=== PATIENT | male | born 1935 | race Caucasian/White ===

== ENCOUNTER 2019-04-16 06:06 | Day surgery (SDC) | payer MEDICARE, BC ==
[2019-04-15 10:27] LABS: BASOPHILS % (AUTO) 0.5 % (0-1); EOSINOPHILS # (AUTO) 0.1 X10'3 (0-0.9); EOSINOPHILS % (AUTO) 1.3 % (0-6); HEMATOCRIT 39.6 % (42.0-52.0); HEMOGLOBIN 13.9 g/dl (14.0-17.9); LYMPHOCYTES # (AUTO) 1.2 X10'3 (1.1-4.8); LYMPHOCYTES % (AUTO) 28.1 % (21-51); MEAN CORPUSCULAR HEMOGLOBIN 30.6 PG (27.0-31.0); MEAN CORPUSCULAR VOLUME 87.5 FL (78-98); MEAN PLATELET VOLUME 7.7 FL (7.4-10.4); MONOCYTES # (AUTO) 0.4 X10'3 (0-0.9); MONOCYTES % (AUTO) 8.8 % (2-12); NEUTROPHILS # (AUTO) 2.6 X10'3 (1.8-7.7); NEUTROPHILS % (AUTO) 61.3 % (42-75); PLATELET COUNT 141 X10'3 (140-440); RED BLOOD COUNT 4.53 X10'6 (4.70-6.10); RED CELL DISTRIBUTION WIDTH 13.6 % (11.5-14.5); WHITE BLOOD COUNT 4.2 X10'3 (4.5-11.0)
[2019-04-15 10:39] LABS: ALBUMIN 3.7 G/DL (3.4-5.0); ANION GAP 7 (8-16); BLOOD UREA NITROGEN 20 MG/DL (7-18); BUN/CREATININE RATIO 22.2 (5.4-32.0); CALCIUM 9.3 MG/DL (8.5-10.1); CHLORIDE 108 MMOL/L (99-107); GLUCOSE 101 MG/DL (70-104); SODIUM 144 MMOL/L (135-145); eGFR 80 ML/MIN
[2019-04-15 10:41] LABS: PARTIAL THROMBOPLASTIN TIME 28 SECONDS (22-32)
[~2019-04-16] VITALS: Ht 177.8 cm; Wt 73.2 kg
[2019-04-16] VITALS (10 sets, daily range): BP systolic 110–131; BP diastolic 57–73
[~2019-04-16 06:06] MED LIST: COU1T PO; COU3T PO; LOP25T PO
[2019-04-16] MEDS ORDERED: cefazolin/dext.iso 2gm/50ml 50 ML IV ONE (06:25)
[2019-04-16] MEDS ORDERED: normal saline 1000ml 1,000 ML IV SCH (06:25)
[2019-04-16] MEDS ORDERED: METO50TA16 PO (06:39)
[2019-04-16] MEDS ORDERED: ceFAZolin 1000mg inj ONE (07:38)
[2019-04-16] MEDS ORDERED: LIDOcaine 1% W/epiNEPHrine 1:100,000 20ml vial ONE ×2 (07:38→08:36)
[2019-04-16] MEDS ORDERED: ceFAZolin 1GM/D5W- ADD-VANTAGE 50 ML IV ONE (07:38)
[2019-04-16] MEDS ORDERED: fentaNYL/PF 50MCG/1 ML 2ML syringe ONE (07:38)
[2019-04-16] MEDS ORDERED: midazolam 2 mg/2 ml injection ONE (07:38)
[2019-04-16] MEDS ORDERED: HYDROcodone/acetaminophen 10/325mg tab PO PRN (10:00)
[2019-04-16] MEDS ORDERED: HYDROcodone/acetaminophen 5mg/325mg tablet PO PRN (10:00)
[2019-04-16] MEDS ORDERED: normal saline 1,000 ML IV SCH (10:10)
[2019-04-16] MEDS ORDERED: vancomycin/NS 1 GM ADD-VANTAGE 250 ML IV ONE (11:00)
== END 2019-04-16 14:05 | disposition home or self-care (01) ==
LOC: SSTAY O 06:06
PROVIDERS: ATTEND Internal Medicine Cardiovascular Disease
DX: Z45.010 Encounter for checking and testing of cardiac pacemaker pulse generator [battery] (principal); I25.10 Atherosclerotic heart disease of native coronary artery without angina pectoris; E78.5 Hyperlipidemia, unspecified; I48.20 Chronic atrial fibrillation, unspecified; I48.21 Permanent atrial fibrillation; I49.5 Sick sinus syndrome; Z79.01 Long term (current) use of anticoagulants; Z79.899 Other long term (current) drug therapy; Z96.653 Presence of artificial knee joint, bilateral; Z98.890 Other specified postprocedural states
CPT/HCPCS: 33227; 36415; 80048; 85025; 85610; 85730; 93005; 99152; 99153; A4620; A6258; A6449; C1786; J0690; J2250; J3010; J3370; J7030

== ENCOUNTER 2022-01-25 22:39 | Emergency (ER) | payer MEDICARE, BC ==
[~2022-01-25] VITALS: Ht 170.2 cm; Wt 63.4 kg
[~2022-01-25 22:39] MED LIST changes: +BACL10TA2 PO; +FURO40TA4 PO; -LOP25T PO; +METO50TA16 PO; +POTA-207 PO; +TRAV2.5D6
[2022-01-25 23:36] LABS: BASOPHILS % (AUTO) 0.9 % (0-1); EOSINOPHILS # (AUTO) 0.1 X10'3 (0-0.9); EOSINOPHILS % (AUTO) 1.7 % (0-6); HEMATOCRIT 32.9 % (42.0-52.0); HEMOGLOBIN 11.3 g/dl (14.0-17.9); LYMPHOCYTES # (AUTO) 2.4 X10'3 (1.1-4.8); LYMPHOCYTES % (AUTO) 47.5 % (21-51); MEAN CORPUSCULAR HGB CONC 34.3 g/dL (33.0-36.5); MEAN CORPUSCULAR VOLUME 90.4 FL (78-98); MEAN PLATELET VOLUME 7.2 FL (7.4-10.4); MONOCYTES # (AUTO) 0.5 X10'3 (0-0.9); MONOCYTES % (AUTO) 9.9 % (2-12); PLATELET COUNT 116 X10'3 (140-440); RED BLOOD COUNT 3.64 X10'6 (4.70-6.10); RED CELL DISTRIBUTION WIDTH 14.6 % (11.5-14.5)
[2022-01-26] MEDS ORDERED: Thrombin (Bovine) 5,000 unit vial TP ONE
[2022-01-26 00:11] LABS: APTT 33 SECONDS (22-32)
[2022-01-26 00:25] LABS: TOTAL CELLS COUNTED 100
[2022-01-26 00:26] LABS: ELLIPTOCYTES 1+; PLATELET ESTIMATE DECREASED; SCHISTOCYTES FEW
[2022-01-26 02:15] VITALS: BP 123/75
== END 2022-01-26 02:25 | disposition home or self-care (01) ==
LOC: ER 22:40
DX: S01.512A Laceration without foreign body of oral cavity, initial encounter (principal); I11.0 Hypertensive heart disease with heart failure; I50.9 Heart failure, unspecified; G89.29 Other chronic pain; M54.50 Low back pain, unspecified; X58.XXXA Exposure to other specified factors, initial encounter; Y93.89 Activity, other specified; Y92.89 Other specified places as the place of occurrence of the external cause; Y99.8 Other external cause status
CPT/HCPCS: 36415; 85007; 85025; 85610; 85730; 99285

== ENCOUNTER 2022-01-28 21:55 | Emergency (ER) | payer MEDICARE, BC ==
[~2022-01-28] VITALS: Ht 170.2 cm; Wt 67.3 kg
[2022-01-29] MEDS ORDERED: tranexamic acid 100mg/ml inj. TP ONE (01:30)
[2022-01-29] MEDS ORDERED: LIDOcaine 1% W/epiNEPHrine 1:100,000 20ml vial SQ ONE (01:30)
[2022-01-29] MEDS ORDERED: LIDOcaine 40mg/ml topical solution MM ONE (03:20)
[2022-01-29] MEDS ORDERED: LIDOcaine 4% (40 mg/ml) topical solution 50ml MM ONE (03:25)
[2022-01-29 04:11] VITALS: BP 119/70
== END 2022-01-29 04:13 | disposition home or self-care (01) ==
LOC: ER 21:56
DX: S01.512A Laceration without foreign body of oral cavity, initial encounter (principal); I11.0 Hypertensive heart disease with heart failure; I50.9 Heart failure, unspecified; G89.29 Other chronic pain; Z95.0 Presence of cardiac pacemaker; Z79.01 Long term (current) use of anticoagulants; Z79.899 Other long term (current) drug therapy; I48.91 Unspecified atrial fibrillation; X58.XXXA Exposure to other specified factors, initial encounter; Y93.89 Activity, other specified; Y92.89 Other specified places as the place of occurrence of the external cause; Y99.8 Other external cause status
CPT/HCPCS: 99284; A6449

== ENCOUNTER 2022-03-14 08:26 | Day surgery (SDC) | payer MEDICARE, BC ==
[~2022-03-14] VITALS: Ht 167.6 cm; Wt 68.1 kg
[2022-03-14 08:42] VITALS: BP 135/82
[2022-03-14] MEDS ORDERED: CLOP75TA15 PO (09:06)
[2022-03-14] MEDS ORDERED: ROSU10TA2 PO (09:06)
[2022-03-14] MEDS ORDERED: MIDAZolam 1 MG/ML 5ML VIAL ONE (09:14)
[2022-03-14] MEDS ORDERED: fentaNYL/PF 50MCG/1 ML 2ML syringe ONE (09:14)
[2022-03-14 10:25] VITALS: BP 132/69
[2022-03-14 10:35] VITALS: BP 133/86
[2022-03-14 10:45] VITALS: BP 121/70
[2022-03-14 10:55] VITALS: BP 129/78
== END 2022-03-14 11:05 | disposition home or self-care (01) ==
LOC: GI LAB 08:26
PROVIDERS: ATTEND Internal Medicine Gastroenterology
DX: K62.5 Hemorrhage of anus and rectum (principal); K57.30 Diverticulosis of large intestine without perforation or abscess without bleeding; Z79.899 Other long term (current) drug therapy
CPT/HCPCS: 45378; G0500; J2250; J3010; J7030; Z7512; 99152; A4620

== ENCOUNTER 2022-12-03 12:44 | Inpatient (IN) | payer MEDICARE, BC ==
[~2022-12-03] VITALS: Ht 167.6 cm; Wt 65.9 kg
[~2022-12-03 12:44] MED LIST changes: -BACL10TA2 PO; +CLOP75TA15 PO; -FURO40TA4 PO; -POTA-207 PO; +ROSU10TA2 PO; -TRAV2.5D6
[2022-12-03 13:19] LABS: BASOPHILS % (AUTO) 0.7 % (0-1); EOSINOPHILS # (AUTO) 0.1 X10'3 (0-0.9); EOSINOPHILS % (AUTO) 0.9 % (0-6); HEMATOCRIT 34.5 % (42.0-52.0); HEMOGLOBIN 11.6 g/dl (14.0-17.9); LYMPHOCYTES # (AUTO) 0.9 X10'3 (1.1-4.8); LYMPHOCYTES % (AUTO) 12.9 % (21-51); MEAN CORPUSCULAR HEMOGLOBIN 29.3 PG (27.0-31.0); MEAN CORPUSCULAR HGB CONC 33.5 g/dL (33.0-36.5); MEAN CORPUSCULAR VOLUME 87.3 FL (78-98); MONOCYTES # (AUTO) 0.4 X10'3 (0-0.9); MONOCYTES % (AUTO) 6.2 % (2-12); NEUTROPHILS # (AUTO) 5.6 X10'3 (1.8-7.7); NEUTROPHILS % (AUTO) 79.3 % (42-75); PLATELET COUNT 153 X10'3 (140-440); RED BLOOD COUNT 3.95 X10'6 (4.70-6.10); RED CELL DISTRIBUTION WIDTH 14.5 % (11.5-14.5)
[2022-12-03 13:27] LABS: ALANINE AMINOTRANSFERASE 22 U/L (12-78); ALBUMIN 3.7 G/DL (3.4-5.0); ALKALINE PHOSPHATASE 83 IU/L (46-116); ANION GAP 7 (8-16); ASPARTATE AMINO TRANSFERASE 32 U/L (10-37); BILIRUBIN,TOTAL 1.3 MG/DL (0.1-1.0); BLOOD UREA NITROGEN 24 MG/DL (7-18); BUN/CREATININE RATIO 26.4 (10.0-20.0); CALCIUM 9.4 MG/DL (8.5-10.1); CHLORIDE 107 MMOL/L (99-107); CREATININE 0.91 MG/DL (0.60-1.10); GLUCOSE 121 MG/DL (70-104); POTASSIUM 4.3 MMOL/L (3.5-5.1); SODIUM 141 MMOL/L (135-145); TOTAL PROTEIN 7.3 G/DL (6.4-8.2); eGFR 79 ML/MIN
--- NOTE | 2022-12-03 15:30 | NUR ---
RN PERFORMED GAIT TEST WITH PT WITH WALKER. PT WALKED 10 STEPS AND BECAME UNSTEADY. RN NOTIFIED. HARRIS HERNANDEZ.
[2022-12-03] MEDS ORDERED: magnesium hydroxide 30ml (MOM) UD suspension PO PRN (16:45)
[2022-12-03] MEDS ORDERED: magnesium Cl slow-release 64mg tablet PO PRN (16:45)
[2022-12-03] MEDS ORDERED: potassium Cl 40MEQ/1/2NS 520ml 520 ML IV PRN (16:45)
[2022-12-03] MEDS ORDERED: magnesium 4gm in 100ml NS 100 ML IV PRN (16:45)
[2022-12-03] MEDS ORDERED: magnesium 2GM in 50ml NS 50 ML IV PRN (16:45)
[2022-12-03] MEDS ORDERED: potassium Cl 20 mEq SR tablet PO PRN ×2 (16:45)
[2022-12-03] MEDS ORDERED: ondansetron/PF 4mg/2ml inj IV PRN (16:45)
[2022-12-03] MEDS ORDERED: mag hydrox/Alum hydrox/simeth 30ml oral suspension PO PRN (16:45)
[2022-12-03] MEDS ORDERED: acetaminophen 325mg tablet PO PRN (16:45)
--- NOTE | 2022-12-03 17:27 | NUR ---
PT HAVING US AT THIS TIME.
[2022-12-03] MEDS ORDERED: WARF-65 PO (18:19)
[2022-12-03] MEDS: normal saline 1000ml 1,000 ML IV SCH (18:26)
[2022-12-03] MEDS ORDERED: metoprolol tartrate 50mg tablet PO ONE (18:30)
--- NOTE | 2022-12-03 18:44 | NUR ---
PAGED DR. WOLF REGARDING MRI. 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
--- NOTE | 2022-12-03 19:40 | NUR ---
Patient in room ORTHO 4020. I have received report from SUZIE Santos and had the opportunity to ask questions and assume patient care.
[2022-12-03 19:45] VITALS: BP 122/70
[2022-12-03] MEDS: K and/or MAG REPLACEMENT MC SCH (20:00)
[2022-12-03] MEDS ORDERED: WARF3TAB56 PO (20:31)
[2022-12-03] MEDS ORDERED: BRIM5DRO3 EACHEYE (20:32)
[2022-12-03] MEDS ORDERED: warfarin 1mg tablet PO ONE (21:00)
[2022-12-03] MEDS: docusate sod 100mg capsule PO SCH (21:16)
[2022-12-04] VITALS: BP 113/62
[2022-12-04] MEDS: normal saline 1000ml 1,000 ML IV SCH ×2 (02:45→05:27)
[2022-12-04 04:00] VITALS: BP 136/77
--- NOTE | 2022-12-04 06:24 | NUR ---
Problems reprioritized. Patient report given, questions answered & plan of care reviewed with SUZIE RON.
--- NOTE | 2022-12-04 06:28 | NUR ---
Patient in room ORTHO 4020. I have received report from Kacie RN /Char Spivey RN and had the opportunity to ask questions and assume patient care.
[2022-12-04 06:44] LABS: BASOPHILS % (AUTO) 0.4 % (0-1); EOSINOPHILS # (AUTO) 0.1 X10'3 (0-0.9); EOSINOPHILS % (AUTO) 2.4 % (0-6); HEMATOCRIT 34.6 % (42.0-52.0); HEMOGLOBIN 11.5 g/dl (14.0-17.9); LYMPHOCYTES # (AUTO) 1.8 X10'3 (1.1-4.8); LYMPHOCYTES % (AUTO) 41.6 % (21-51); MEAN CORPUSCULAR HEMOGLOBIN 29.1 PG (27.0-31.0); MEAN CORPUSCULAR HGB CONC 33.2 g/dL (33.0-36.5); MEAN CORPUSCULAR VOLUME 87.6 FL (78-98); MONOCYTES # (AUTO) 0.4 X10'3 (0-0.9); MONOCYTES % (AUTO) 9.4 % (2-12); NEUTROPHILS % (AUTO) 46.2 % (42-75); PLATELET COUNT 136 X10'3 (140-440); RED BLOOD COUNT 3.95 X10'6 (4.70-6.10); RED CELL DISTRIBUTION WIDTH 14.5 % (11.5-14.5); WHITE BLOOD COUNT 4.3 X10'3 (4.5-11.0)
[2022-12-04 06:55] LABS: ALBUMIN 3.3 G/DL (3.4-5.0); ANION GAP 7 (8-16); BLOOD UREA NITROGEN 22 MG/DL (7-18); BUN/CREATININE RATIO 23.2 (10.0-20.0); CALCIUM 8.7 MG/DL (8.5-10.1); CHLORIDE 108 MMOL/L (99-107); CREATININE 0.95 MG/DL (0.60-1.10); GLUCOSE 88 MG/DL (70-104); MAGNESIUM 1.7 MG/DL (1.5-2.4); SODIUM 142 MMOL/L (135-145); TOTAL CARBON DIOXIDE 27.1 MMOL/L (24-32); eGFR 75 ML/MIN
[2022-12-04 07:00] VITALS: BP 136/77
[2022-12-04] MEDS ORDERED: aspirin 81mg, enteric-coated 1 TAB TABLET.DR PO SCH (08:00)
[2022-12-04] MEDS: docusate sod 100mg capsule PO SCH (08:19)
[2022-12-04] MEDS: K and/or MAG REPLACEMENT MC SCH (08:19)
[2022-12-04] MEDS ORDERED: iohexol 350MG/ML 100ml bottle IV ONE (09:26)
[2022-12-04 10:00] VITALS: BP 121/61
--- NOTE | 2022-12-04 11:35 | NUR ---
MD notified MRI is not able to be completed, pacemaker not compatible.
--- NOTE | 2022-12-04 14:24 | NUR ---
Patient discharged to home. Family at bedside for all education. INR 3.5, to call monitoring nurse to get orders to hold or give. All education acknowledged, family had the opportunity to ask questions, no questions asked. Patient dressed himself. with all belongings and discharge paperwork. IV taken out. Patient out to lobby by .
== END 2022-12-04 14:26 | disposition home or self-care (01) | DRG 69 ==
LOC: ER 12:44 → ED HOLD 16:50 → ORTHO 4S 19:51
PROVIDERS: ADMIT Family Medicine; ATTEND Family Medicine
PROC: B3251ZZ Computerized Tomography (CT Scan) of Bilateral Common Carotid Arteries using Low Osmolar Contrast (ICD-10-PCS; principal; 2022-12-04)
PROC: B32G1ZZ Computerized Tomography (CT Scan) of Bilateral Vertebral Arteries using Low Osmolar Contrast (ICD-10-PCS; 2022-12-04)
PROC: B32R1ZZ Computerized Tomography (CT Scan) of Intracranial Arteries using Low Osmolar Contrast (ICD-10-PCS; 2022-12-04)
PROC: B3281ZZ Computerized Tomography (CT Scan) of Bilateral Internal Carotid Arteries using Low Osmolar Contrast (ICD-10-PCS; 2022-12-04)
DX: G45.9 Transient cerebral ischemic attack, unspecified (principal); I48.91 Unspecified atrial fibrillation; Z20.822 Contact with and (suspected) exposure to COVID-19; I11.0 Hypertensive heart disease with heart failure; H91.92 Unspecified hearing loss, left ear; N40.0 Benign prostatic hyperplasia without lower urinary tract symptoms; I50.9 Heart failure, unspecified; R29.6 Repeated falls; G89.29 Other chronic pain; M54.9 Dorsalgia, unspecified; Z79.899 Other long term (current) drug therapy; Z95.0 Presence of cardiac pacemaker; Z95.2 Presence of prosthetic heart valve
CPT/HCPCS: 36415; 70450; 70496; 70498; 71045; 72125; 80048; 80053; 83735; 83880; 84484; 85025; 85610; 87081; 87811; 92508; 92616; 93306; 93880; 97116; 97162; 97530; 99285; G0378; J3490; J7030; Q9967

== ENCOUNTER 2023-05-15 22:10 | Inpatient (IN) | payer MEDICARE, BC ==
[~2023-05-15] VITALS: Ht 172.7 cm; Wt 70.1 kg
[~2023-05-15 22:10] MED LIST changes: +BRIM5DRO3 EACHEYE; -COU1T PO; -COU3T PO; +WARF-65 PO; +WARF3TAB56 PO
[2023-05-15] MEDS ORDERED: CefTRIAXone/D5W-Rocephin 1gm 50 ML IV ONE (22:30)
[2023-05-15] MEDS ORDERED: normal saline 1000ML IV soln IVB ONE (22:30)
[2023-05-15 22:56] LABS: BASOPHILS # (AUTO) 0.1 X10'3 (0-0.2); BASOPHILS % (AUTO) 0.7 % (0-1); EOSINOPHILS % (AUTO) 0 % (0-6); HEMATOCRIT 30.7 % (42.0-52.0); HEMOGLOBIN 10.4 g/dl (14.0-17.9); LYMPHOCYTES # (AUTO) 0.3 X10'3 (1.1-4.8); LYMPHOCYTES % (AUTO) 3.5 % (21-51); MEAN CORPUSCULAR HEMOGLOBIN 29.5 PG (27.0-31.0); MEAN CORPUSCULAR VOLUME 86.9 FL (78-98); MEAN PLATELET VOLUME 6.9 FL (7.4-10.4); MONOCYTES # (AUTO) 0.5 X10'3 (0-0.9); MONOCYTES % (AUTO) 6.4 % (2-12); NEUTROPHILS # (AUTO) 6.7 X10'3 (1.8-7.7); NEUTROPHILS % (AUTO) 89.4 % (42-75); PLATELET COUNT 222 X10'3 (140-440); RED BLOOD COUNT 3.53 X10'6 (4.70-6.10); RED CELL DISTRIBUTION WIDTH 14.3 % (11.5-14.5); WHITE BLOOD COUNT 7.5 X10'3 (4.5-11.0)
[2023-05-15 23:00] LABS: INR 1.9 INR; PROTHROMBIN TIME 19.8 SECONDS (9.0-12.0)
[2023-05-15 23:04] LABS: ALANINE AMINOTRANSFERASE 14 U/L (12-78); ALBUMIN 2.7 G/DL (3.4-5.0); ALBUMIN/GLOBULIN RATIO 0.6 (1.1-1.5); ALKALINE PHOSPHATASE 154 IU/L (46-116); ANION GAP 7 (8-16); ASPARTATE AMINO TRANSFERASE 20 U/L (10-37); BILIRUBIN,TOTAL 1.8 MG/DL (0.1-1.0); BLOOD UREA NITROGEN 33 MG/DL (7-18); BUN/CREATININE RATIO 25.4 (10.0-20.0); CALCIUM 8.8 MG/DL (8.5-10.1); CHLORIDE 100 MMOL/L (99-107); GLUCOSE 123 MG/DL (70-104); POTASSIUM 3.5 MMOL/L (3.5-5.1); SODIUM 135 MMOL/L (135-145); TOTAL CARBON DIOXIDE 28.5 MMOL/L (24-32); TOTAL PROTEIN 7.4 G/DL (6.4-8.2); eCRCL 38 ML/MIN; eGFR 52 ML/MIN
--- NOTE | 2023-05-15 23:06 | NUR ---
- LATOYA HUANG: [phone] OR [phone]
[2023-05-15 23:12] LABS: BILIRUBIN,URINE NEGATIVE (Neg); CLARITY,URINE SLIGHTLY CLOUDY (Clear); GLUCOSE, URINE NEGATIVE (Neg); KETONES,URINE NEGATIVE (Neg); LEUKOCYTE ESTERASE ,URINE NEGATIVE (Neg); NITRITES, URINE NEGATIVE (Neg); OCCULT BLOOD,URINE SMALL (Neg); PH,URINE 5.5 (4.8-8.0); PROTEIN,URINE TRACE mg/dl (Neg)
[2023-05-15] MEDS ORDERED: DICL100G59 (23:12)
[2023-05-15] MEDS ORDERED: TRAV2.5D6 EACHEYE (23:12)
[2023-05-15] MEDS ORDERED: FURO40TA4 PO (23:12)
[2023-05-15] MEDS ORDERED: BRIM10DR3 EACHEYE (23:12)
[2023-05-15 23:13] LABS: UA COLLECTION TYPE STRAIGHT CATH
[2023-05-15 23:17] LABS: COLOR,URINE DARK YELLOW (Yellow)
[2023-05-15 23:19] LABS: BACTERIA,URINE FEW /HPF (Neg); SQUAMOUS EPITHELIAL CELL,UR FEW /LPF (FEW); WBC,URINE 0-4 /HPF (0-4)
[2023-05-15 23:20] LABS: AMORPHOUS URATES 1+
--- NOTE | 2023-05-15 23:32 | NUR ---
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 STATED PT RIGHT KNEE HAS BEEN SWOLLEN THE PAST FEW DAYS WELL AND WARM TO THE TOUCH. RASH NOTED TO RIGHT DISTAL RIGHT KNEE. RASH APPEARS NONPAINFUL BUT IS WARM TO THE TOUCH. DR SAENZ NOTIFIED ABOUT RASH.
[2023-05-16] VITALS (9 sets, daily range): BP systolic 82–119; BP diastolic 43–53; PULSE 60–90; RESP 13–21; TEMP 97.2–97.8; O2SAT 96–100
[2023-05-16] MEDS ORDERED: ondansetron/PF 4mg/2ml inj IV PRN
[2023-05-16] MEDS ORDERED: magnesium hydroxide 30ml (MOM) UD suspension PO PRN
[2023-05-16] MEDS ORDERED: acetaminophen 325mg tablet PO PRN
[2023-05-16] MEDS ORDERED: mag hydrox/Alum hydrox/simeth 30ml oral suspension PO PRN
[2023-05-16] MEDS ORDERED: morphine 2 MG/ML inj. syringe IV PRN ×2
[2023-05-16] MEDS: normal saline 1000ml 1,000 ML IV SCH ×3 (00:27→20:06)
--- NOTE | 2023-05-16 00:28 | NUR ---
DR SAENZ NOTIFIED OF LOW BP. MAINTENANCE FLUIDS STARTED.
[2023-05-16 00:53] LABS: PRO BRAIN NATRIURETIC PEPTIDE 3210 PG/ML (0-450)
--- NOTE | 2023-05-16 06:22 | NUR ---
Report given to Danielle
[2023-05-16 07:22] LABS: PROTHROMBIN TIME 20.7 SECONDS (9.0-12.0)
[2023-05-16] MEDS ORDERED: ceFAZolin/D5W- 1GM premix 50 ML IV SCH (08:00)
[2023-05-16] MEDS: metoprolol tartrate 50mg tablet PO SCH ×2 (08:00→20:20)
[2023-05-16] MEDS ORDERED: non-formulary drug (Warfarin Sodium 1 TABLET) PO SCH (08:00)
--- NOTE | 2023-05-16 08:05 | NUR ---
PAGER ID: [phone] MESSAGE: 3026A- Bhanu, E- positive BC drawn 05/15@2330 anarobic bottle gram neg rods. Also pt BP is 94/53 HR 68. - Muang [id number]
[2023-05-16] MEDS: clopidogrel 75mg tablet PO SCH (08:15)
[2023-05-16] MEDS: docusate sod 100mg capsule PO SCH ×2 (08:15→20:08)
[2023-05-16] MEDS ORDERED: vancomycin/NS 1 GM ADD-VANTAGE 250 ML IV SCH (08:35)
--- NOTE | 2023-05-16 08:53 | NUR ---
PAGER ID: [phone] MESSAGE: [id number]- Huseyin Drummond- 2nd positive BC Right arm drawn 05/15 anarobic positive @8.15 hours gram neg rods. 3rd bottle aerobic right forearm 05/15 psotive @9.17hrs gram neg rods.- Danielle [id number]
[2023-05-16] MEDS ORDERED: VANCOMYCIN 750MG IV in NS 250 ML IV SCH (09:00)
[2023-05-16 09:03] LABS: BASOPHILS # (AUTO) 0.1 X10'3 (0-0.2); BASOPHILS % (AUTO) 1.9 % (0-1); EOSINOPHILS % (AUTO) 0 % (0-6); HEMATOCRIT 29.7 % (42.0-52.0); HEMOGLOBIN 9.8 g/dl (14.0-17.9); LYMPHOCYTES # (AUTO) 0.4 X10'3 (1.1-4.8); LYMPHOCYTES % (AUTO) 5.3 % (21-51); MEAN PLATELET VOLUME 6.9 FL (7.4-10.4); MONOCYTES # (AUTO) 0.5 X10'3 (0-0.9); MONOCYTES % (AUTO) 6.9 % (2-12); NEUTROPHILS # (AUTO) 6.9 X10'3 (1.8-7.7); NEUTROPHILS % (AUTO) 85.9 % (42-75); PLATELET COUNT 186 X10'3 (140-440); RED BLOOD COUNT 3.37 X10'6 (4.70-6.10); RED CELL DISTRIBUTION WIDTH 14.3 % (11.5-14.5)
[2023-05-16 09:06] LABS: ALANINE AMINOTRANSFERASE 10 U/L (12-78); ALBUMIN 2.2 G/DL (3.4-5.0); ALBUMIN/GLOBULIN RATIO 0.5 (1.1-1.5); ALKALINE PHOSPHATASE 127 IU/L (46-116); ANION GAP 6 (8-16); ASPARTATE AMINO TRANSFERASE 18 U/L (10-37); BILIRUBIN,TOTAL 1.1 MG/DL (0.1-1.0); BLOOD UREA NITROGEN 31 MG/DL (7-18); BUN/CREATININE RATIO 28.7 (10.0-20.0); CALCIUM 8.2 MG/DL (8.5-10.1); CHLORIDE 103 MMOL/L (99-107); CHOL/HDL RATIO 3.3 (0.00-4.99); CHOLESTEROL 62 MG/DL (0-200); CREATININE 1.08 MG/DL (0.60-1.10); GLUCOSE 133 MG/DL (70-104); HDL CHOLESTEROL 19 MG/DL (35-60); LDL CHOLESTEROL 37 MG/DL (50-100); POTASSIUM 3.4 MMOL/L (3.5-5.1); SODIUM 137 MMOL/L (135-145); TOTAL CARBON DIOXIDE 28.2 MMOL/L (24-32); TOTAL PROTEIN 6.3 G/DL (6.4-8.2); TRIGLYCERIDES 58 MG/DL (20-135); eCRCL 46 ML/MIN; eGFR 65 ML/MIN
[2023-05-16 09:42] LABS: HEMOGLOBIN A1C 5.7 % (4.5-6.2)
[2023-05-16] MEDS ORDERED: magnesium Cl slow-release 64mg tablet PO PRN (09:55)
[2023-05-16] MEDS ORDERED: potassium Cl 20 mEq SR tablet PO PRN (09:55)
[2023-05-16] MEDS ORDERED: magnesium 2GM in 50ml NS 50 ML IV PRN (09:55)
[2023-05-16] MEDS ORDERED: magnesium 4gm in 100ml NS 100 ML IV PRN (09:55)
[2023-05-16] MEDS ORDERED: potassium Cl 40MEQ/1/2NS 520ml 520 ML IV PRN (09:55)
[2023-05-16] MEDS: brimonidine 0.2% 5 ML ophthalmic drops EACHEYE SCH ×2 (10:02→20:24)
[2023-05-16] MEDS: ROSUVASTATIN CALCIUM 5 MG TABLET PO SCH (10:03)
[2023-05-16] MEDS: CefTRIAXone/D5W-Rocephin 1gm 50 ML IV SCH (10:03)
--- NOTE | 2023-05-16 10:17 | NUR ---
Dr. Murphy aware patient BP low this am and unable to do orthostatic vitals. No new orders.
[2023-05-16] MEDS: potassium Cl 20 mEq SR tablet PO PRN ×2 (13:10→20:08)
--- NOTE | 2023-05-16 18:18 | NUR ---
Problems reprioritized. Patient report given, questions answered & plan of care reviewed with SUZIE Stanford.
--- NOTE | 2023-05-16 18:20 | NUR ---
Patient in room PCU 3026. I have received report from Danielle LARSEN and had the opportunity to ask questions and assume patient care.
--- NOTE | 2023-05-16 18:24 | NUR ---
Problems reprioritized. Patient report given, questions answered & plan of care reviewed with SUZIE Stanford.
[2023-05-16] MEDS: acetaminophen 325mg tablet PO PRN (18:38)
[2023-05-16] MEDS: latanoprost 0.005% 2.5ml ophthalmic drops EACHEYE SCH (20:15)
[2023-05-16] MEDS: K and/or MAG REPLACEMENT MC SCH (20:25)
[2023-05-16] MEDS ORDERED: warfarin 1mg tablet PO ONE (21:00)
[2023-05-17] VITALS (10 sets, daily range): BP systolic 90–126; BP diastolic 44–64; PULSE 62–80; RESP 16–21; TEMP 97–98.2; O2SAT 93–100
[2023-05-17] MEDS: acetaminophen 325mg tablet PO PRN (04:32)
[2023-05-17] MEDS: normal saline 1000ml 1,000 ML IV SCH ×2 (04:33→17:15)
--- NOTE | 2023-05-17 06:50 | NUR ---
Patient in room PCU 3026. I have received report from SUZIE Stanford and had the opportunity to ask questions and assume patient care.
--- NOTE | 2023-05-17 06:57 | NUR ---
Problems reprioritized. Patient report given, questions answered & plan of care reviewed with Porsha RN.
[2023-05-17 07:27] LABS: BASOPHILS % (AUTO) 0.3 % (0-1); EOSINOPHILS % (AUTO) 0.4 % (0-6); HEMATOCRIT 27.9 % (42.0-52.0); HEMOGLOBIN 9.3 g/dl (14.0-17.9); LYMPHOCYTES # (AUTO) 0.9 X10'3 (1.1-4.8); LYMPHOCYTES % (AUTO) 16.1 % (21-51); MEAN CORPUSCULAR HEMOGLOBIN 29.2 PG (27.0-31.0); MEAN CORPUSCULAR HGB CONC 33.4 g/dL (33.0-36.5); MEAN CORPUSCULAR VOLUME 87.5 FL (78-98); MEAN PLATELET VOLUME 7.1 FL (7.4-10.4); MONOCYTES # (AUTO) 0.5 X10'3 (0-0.9); MONOCYTES % (AUTO) 8.5 % (2-12); NEUTROPHILS % (AUTO) 74.7 % (42-75); PLATELET COUNT 185 X10'3 (140-440); RED CELL DISTRIBUTION WIDTH 14.4 % (11.5-14.5); WHITE BLOOD COUNT 5.3 X10'3 (4.5-11.0)
[2023-05-17 07:38] LABS: INR 1.8 INR; PROTHROMBIN TIME 18.5 SECONDS (9.0-12.0)
[2023-05-17 07:46] LABS: ALBUMIN 2.1 G/DL (3.4-5.0); ANION GAP 6 (8-16); BLOOD UREA NITROGEN 30 MG/DL (7-18); BUN/CREATININE RATIO 32.3 (10.0-20.0); CALCIUM 8.2 MG/DL (8.5-10.1); CHLORIDE 105 MMOL/L (99-107); CREATININE 0.93 MG/DL (0.60-1.10); GLUCOSE 91 MG/DL (70-104); POTASSIUM 4.1 MMOL/L (3.5-5.1); SODIUM 136 MMOL/L (135-145); eCRCL 53 ML/MIN; eGFR 77 ML/MIN
[2023-05-17] MEDS: K and/or MAG REPLACEMENT MC SCH ×2 (08:00→19:31)
[2023-05-17] MEDS: brimonidine 0.2% 5 ML ophthalmic drops EACHEYE SCH ×2 (08:00→19:28)
[2023-05-17] MEDS: metoprolol tartrate 50mg tablet PO SCH ×3 (08:00→19:29)
[2023-05-17] MEDS ORDERED: vancomycin/NS 1 GM ADD-VANTAGE 250 ML IV SCH (09:00)
[2023-05-17] MEDS: docusate sod 100mg capsule PO SCH ×2 (09:29→19:29)
[2023-05-17] MEDS: CefTRIAXone/D5W-Rocephin 1gm 50 ML IV SCH (09:30)
[2023-05-17] MEDS: clopidogrel 75mg tablet PO SCH (09:30)
[2023-05-17] MEDS: ROSUVASTATIN CALCIUM 5 MG TABLET PO SCH (09:31)
[2023-05-17] MEDS ORDERED: CefTRIAXone/D5W-Rocephin 1gm 50 ML IV ONE (10:55)
[2023-05-17] MEDS ORDERED: HYDROcodone/acetaminophen 5mg/325mg tablet PO PRN (12:35)
[2023-05-17] MEDS ORDERED: HYDROcodone/acetaminophen 10/325mg tab PO PRN (12:35)
[2023-05-17 15:29] LABS: APPEARANCE,SYNOVIAL FLUID BLOODY; COLOR,SYNOVIAL FLUID RED
[2023-05-17 15:30] LABS: SYN WBC 863 /CU MM (0-200)
--- NOTE | 2023-05-17 18:30 | NUR ---
Problems reprioritized. Patient report given, questions answered & plan of care reviewed with SUZIE Stanford.
--- NOTE | 2023-05-17 18:45 | NUR ---
Patient in room PCU 3026. I have received report from Porsha LARSEN and had the opportunity to ask questions and assume patient care.
--- NOTE | 2023-05-17 18:50 | NUR ---
Problems reprioritized. Patient report given, questions answered & plan of care reviewed with SUZIE Stanford.
[2023-05-17] MEDS ORDERED: warfarin 1mg tablet PO ONE (21:00)
[2023-05-17] MEDS: latanoprost 0.005% 2.5ml ophthalmic drops EACHEYE SCH (22:05)
[2023-05-18] VITALS (7 sets, daily range): BP systolic 106–114; BP diastolic 53–64; PULSE 53–68; RESP 16–24; TEMP 97.2–98.1; O2SAT 95–100
[2023-05-18] MEDS: normal saline 1000ml 1,000 ML IV SCH ×3 (02:15→22:00)
[2023-05-18 05:56] LABS: INR 1.7 INR; PROTHROMBIN TIME 18.1 SECONDS (9.0-12.0)
[2023-05-18 05:58] LABS: BASOPHILS % (AUTO) 0.3 % (0-1); EOSINOPHILS % (AUTO) 0.5 % (0-6); HEMATOCRIT 28.7 % (42.0-52.0); HEMOGLOBIN 9.6 g/dl (14.0-17.9); LYMPHOCYTES # (AUTO) 0.9 X10'3 (1.1-4.8); LYMPHOCYTES % (AUTO) 17.6 % (21-51); MEAN CORPUSCULAR HEMOGLOBIN 29.3 PG (27.0-31.0); MEAN CORPUSCULAR HGB CONC 33.3 g/dL (33.0-36.5); MEAN CORPUSCULAR VOLUME 87.8 FL (78-98); MEAN PLATELET VOLUME 7.3 FL (7.4-10.4); MONOCYTES # (AUTO) 0.3 X10'3 (0-0.9); MONOCYTES % (AUTO) 6.8 % (2-12); NEUTROPHILS # (AUTO) 3.8 X10'3 (1.8-7.7); NEUTROPHILS % (AUTO) 74.8 % (42-75); PLATELET COUNT 186 X10'3 (140-440); RED BLOOD COUNT 3.26 X10'6 (4.70-6.10); RED CELL DISTRIBUTION WIDTH 14.6 % (11.5-14.5); WHITE BLOOD COUNT 5.1 X10'3 (4.5-11.0)
[2023-05-18 06:22] LABS: ALBUMIN 2.2 G/DL (3.4-5.0); ANION GAP 9 (8-16); BLOOD UREA NITROGEN 22 MG/DL (7-18); BUN/CREATININE RATIO 24.2 (10.0-20.0); CALCIUM 8.3 MG/DL (8.5-10.1); CHLORIDE 104 MMOL/L (99-107); CREATININE 0.91 MG/DL (0.60-1.10); GLUCOSE 87 MG/DL (70-104); POTASSIUM 3.5 MMOL/L (3.5-5.1); SODIUM 137 MMOL/L (135-145); TOTAL CARBON DIOXIDE 24.4 MMOL/L (24-32); eCRCL 54 ML/MIN; eGFR 79 ML/MIN
--- NOTE | 2023-05-18 06:40 | NUR ---
Problems reprioritized. Patient report given, questions answered & plan of care reviewed with Guadalupe LARSEN.
--- NOTE | 2023-05-18 06:45 | NUR ---
Patient in room PCU 3026. I have received report from SUZIE Stanford and had the opportunity to ask questions and assume patient care.
[2023-05-18] MEDS: K and/or MAG REPLACEMENT MC SCH ×2 (07:36→20:00)
[2023-05-18] MEDS: CefTRIAXone 2gm/D5W 50ml BAG 50 ML IV SCH (09:26)
[2023-05-18] MEDS: clopidogrel 75mg tablet PO SCH (09:26)
[2023-05-18] MEDS: docusate sod 100mg capsule PO SCH ×2 (09:26→22:06)
[2023-05-18] MEDS: ROSUVASTATIN CALCIUM 5 MG TABLET PO SCH (09:27)
[2023-05-18] MEDS: brimonidine 0.2% 5 ML ophthalmic drops EACHEYE SCH ×2 (09:27→22:05)
[2023-05-18] MEDS: metoprolol tartrate 50mg tablet PO SCH (20:00)
[2023-05-18] MEDS ORDERED: warfarin 3mg tablet PO ONE (21:00)
[2023-05-18] MEDS: latanoprost 0.005% 2.5ml ophthalmic drops EACHEYE SCH (22:06)
[2023-05-19 02:00] VITALS: BP 139/65; PULSE 63; RESP 20; TEMP 97.7; O2SAT 97
[2023-05-19 06:15] LABS: INR 2.4 INR; PROTHROMBIN TIME 24.8 SECONDS (9.0-12.0)
[2023-05-19 06:16] LABS: BASOPHILS % (AUTO) 0.6 % (0-1); EOSINOPHILS # (AUTO) 0.1 X10'3 (0-0.9); EOSINOPHILS % (AUTO) 1.9 % (0-6); HEMOGLOBIN 9.5 g/dl (14.0-17.9); LYMPHOCYTES # (AUTO) 0.7 X10'3 (1.1-4.8); LYMPHOCYTES % (AUTO) 15.2 % (21-51); MEAN CORPUSCULAR HEMOGLOBIN 28.8 PG (27.0-31.0); MEAN CORPUSCULAR HGB CONC 32.9 g/dL (33.0-36.5); MEAN CORPUSCULAR VOLUME 87.6 FL (78-98); MEAN PLATELET VOLUME 7.2 FL (7.4-10.4); MONOCYTES # (AUTO) 0.4 X10'3 (0-0.9); MONOCYTES % (AUTO) 7.4 % (2-12); NEUTROPHILS # (AUTO) 3.6 X10'3 (1.8-7.7); NEUTROPHILS % (AUTO) 74.9 % (42-75); PLATELET COUNT 169 X10'3 (140-440); RED BLOOD COUNT 3.31 X10'6 (4.70-6.10); RED CELL DISTRIBUTION WIDTH 14.4 % (11.5-14.5); WHITE BLOOD COUNT 4.8 X10'3 (4.5-11.0)
[2023-05-19 06:18] LABS: ALBUMIN 2.2 G/DL (3.4-5.0); ANION GAP 5 (8-16); BLOOD UREA NITROGEN 15 MG/DL (7-18); BUN/CREATININE RATIO 18.8 (10.0-20.0); CALCIUM 8.5 MG/DL (8.5-10.1); CHLORIDE 106 MMOL/L (99-107); GLUCOSE 90 MG/DL (70-104); MAGNESIUM 2.1 MG/DL (1.5-2.4); POTASSIUM 3.5 MMOL/L (3.5-5.1); SODIUM 138 MMOL/L (135-145); TOTAL CARBON DIOXIDE 26.6 MMOL/L (24-32); eCRCL 62 ML/MIN; eGFR > 90 ML/MIN
--- NOTE | 2023-05-19 06:40 | NUR ---
Problems reprioritized. Patient report given, questions answered & plan of care reviewed with SUZIE Hernandez.
[2023-05-19 07:20] VITALS: BP 131/54; PULSE 69; RESP 18; TEMP 97.9; O2SAT 99
[2023-05-19 08:00] VITALS: RESP 18; O2SAT 98
[2023-05-19] MEDS: K and/or MAG REPLACEMENT MC SCH ×2 (08:00→20:00)
[2023-05-19] MEDS: docusate sod 100mg capsule PO SCH ×2 (08:36→20:00)
[2023-05-19] MEDS: clopidogrel 75mg tablet PO SCH (08:36)
[2023-05-19] MEDS: metoprolol tartrate 50mg tablet PO SCH ×2 (08:36→20:39)
[2023-05-19] MEDS: brimonidine 0.2% 5 ML ophthalmic drops EACHEYE SCH ×2 (08:37→20:38)
[2023-05-19] MEDS: ROSUVASTATIN CALCIUM 5 MG TABLET PO SCH (08:37)
[2023-05-19] MEDS: normal saline 1000ml 1,000 ML IV SCH (08:43)
[2023-05-19] MEDS: CefTRIAXone 2gm/D5W 50ml BAG 50 ML IV SCH (08:43)
[2023-05-19 18:00] VITALS: BP 130/66; PULSE 63; RESP 22; TEMP 97.9; O2SAT 97
[2023-05-19 20:00] VITALS: RESP 22; O2SAT 97
[2023-05-19] MEDS: latanoprost 0.005% 2.5ml ophthalmic drops EACHEYE SCH (20:38)
[2023-05-19] MEDS ORDERED: warfarin 1mg tablet PO ONE (21:00)
[2023-05-19 22:00] VITALS: BP 116/59; PULSE 55; RESP 18; TEMP 98.3; O2SAT 96
[2023-05-20] VITALS (7 sets, daily range): BP systolic 98–121; BP diastolic 52–59; PULSE 60–64; RESP 12–24; TEMP 97.3–97.9; O2SAT 96–98
--- NOTE | 2023-05-20 06:14 | NUR ---
Problems reprioritized. Patient report given, questions answered & plan of care reviewed with David LARSEN. Pt stable at transfer of care
[2023-05-20 06:38] LABS: PROTHROMBIN TIME 42.9 SECONDS (9.0-12.0)
[2023-05-20 06:55] LABS: BASOPHILS % (AUTO) 0.6 % (0-1); EOSINOPHILS # (AUTO) 0.3 X10'3 (0-0.9); EOSINOPHILS % (AUTO) 5.3 % (0-6); HEMATOCRIT 30.7 % (42.0-52.0); HEMOGLOBIN 10.2 g/dl (14.0-17.9); LYMPHOCYTES # (AUTO) 0.8 X10'3 (1.1-4.8); MEAN CORPUSCULAR HGB CONC 33.2 g/dL (33.0-36.5); MEAN CORPUSCULAR VOLUME 87.4 FL (78-98); MEAN PLATELET VOLUME 7.2 FL (7.4-10.4); MONOCYTES # (AUTO) 0.4 X10'3 (0-0.9); MONOCYTES % (AUTO) 8.9 % (2-12); NEUTROPHILS # (AUTO) 3.4 X10'3 (1.8-7.7); NEUTROPHILS % (AUTO) 68.2 % (42-75); PLATELET COUNT 186 X10'3 (140-440); RED BLOOD COUNT 3.51 X10'6 (4.70-6.10); RED CELL DISTRIBUTION WIDTH 14.5 % (11.5-14.5)
[2023-05-20 06:57] LABS: INR 4.4 INR
[2023-05-20 06:59] LABS: ALBUMIN 2.3 G/DL (3.4-5.0); ANION GAP 5 (8-16); BLOOD UREA NITROGEN 12 MG/DL (7-18); BUN/CREATININE RATIO 14.8 (10.0-20.0); CALCIUM 8.5 MG/DL (8.5-10.1); CHLORIDE 105 MMOL/L (99-107); CREATININE 0.81 MG/DL (0.60-1.10); GLUCOSE 93 MG/DL (70-104); POTASSIUM 3.5 MMOL/L (3.5-5.1); SODIUM 137 MMOL/L (135-145); eCRCL 61 ML/MIN; eGFR 90 ML/MIN
[2023-05-20] MEDS: K and/or MAG REPLACEMENT MC SCH ×2 (08:00→20:00)
[2023-05-20] MEDS ORDERED: VANCOMYCIN LEVEL IV ONE (08:30)
[2023-05-20] MEDS: clopidogrel 75mg tablet PO SCH (09:02)
[2023-05-20] MEDS: metoprolol tartrate 50mg tablet PO SCH ×2 (09:03→20:00)
[2023-05-20] MEDS: docusate sod 100mg capsule PO SCH ×2 (09:03→20:00)
[2023-05-20] MEDS: ROSUVASTATIN CALCIUM 5 MG TABLET PO SCH (09:06)
[2023-05-20] MEDS: CefTRIAXone 2gm/D5W 50ml BAG 50 ML IV SCH (09:07)
[2023-05-20] MEDS: brimonidine 0.2% 5 ML ophthalmic drops EACHEYE SCH ×2 (09:07→20:47)
--- NOTE | 2023-05-20 12:15 | NUR ---
Pt complained of fluctuating CP and an EKG was completed. EKG was taken to be read in ER. ER wanted a repeat to compare and another EKG was performed. The second EKG was run down and both pictures were sent to Dr White who consulted. ER verbally asked for a Trop draw with the possibility of pt going to can labeler. Orders put in now.
--- NOTE | 2023-05-20 19:47 | NUR ---
Pt complaining of ear congestion and that it "sounds like he's underwater". Nurse spoke with , evaluated pt for congestion and looked at his ears. gave order for ocean spray (salt water spray) and then Flonase for nasal congestion. also gave order to clean ear with Debrox solution. Orders read back and placed per
[2023-05-20] MEDS ORDERED: salt irrigation nasal spray 45 ML SPRAY NS PRN (19:50)
[2023-05-20] MEDS: fluticasone nasal spray 16GM bottle NS SCH (20:00)
[2023-05-20] MEDS: carbamide peroxide 15ml bottle RIGHT EAR SCH (20:00)
[2023-05-20] MEDS: latanoprost 0.005% 2.5ml ophthalmic drops EACHEYE SCH (20:48)
--- NOTE | 2023-05-20 20:56 | NUR ---
Pt refused all ear and nasal medication. Pt educated on medications, purposes, possible side effects, and necessity, but refused. Pt stated he wants to wait until he sees the specialist after being discharged
[2023-05-21 02:00] VITALS: BP 110/60; PULSE 62; RESP 20; TEMP 97.3; O2SAT 97
[2023-05-21 06:15] VITALS: BP 115/63; PULSE 60; RESP 17; TEMP 97.8; O2SAT 96
--- NOTE | 2023-05-21 06:41 | NUR ---
Problems reprioritized. Patient report given, questions answered & plan of care reviewed with David LARSEN. Pt stable at transfer of care
[2023-05-21] MEDS ORDERED: lisinopril 2.5mg tablet PO SCH (08:00)
[2023-05-21] MEDS: carbamide peroxide 15ml bottle RIGHT EAR SCH (08:00)
[2023-05-21 08:08] VITALS: RESP 17; O2SAT 94
[2023-05-21] MEDS: brimonidine 0.2% 5 ML ophthalmic drops EACHEYE SCH (08:18)
[2023-05-21] MEDS: metoprolol tartrate 50mg tablet PO SCH (08:19)
[2023-05-21] MEDS: ROSUVASTATIN CALCIUM 5 MG TABLET PO SCH (08:20)
[2023-05-21] MEDS: docusate sod 100mg capsule PO SCH (08:21)
[2023-05-21] MEDS: fluticasone nasal spray 16GM bottle NS SCH (08:22)
[2023-05-21] MEDS: CefTRIAXone 2gm/D5W 50ml BAG 50 ML IV SCH (08:24)
[2023-05-21] MEDS ORDERED: spironolactone 25 MG tablet PO SCH (08:30)
[2023-05-21] MEDS: clopidogrel 75mg tablet PO SCH (08:32)
[2023-05-21 09:16] LABS: BASOPHILS % (AUTO) 0.5 % (0-1); EOSINOPHILS # (AUTO) 0.3 X10'3 (0-0.9); HEMOGLOBIN 10.2 g/dl (14.0-17.9); LYMPHOCYTES # (AUTO) 1.2 X10'3 (1.1-4.8); LYMPHOCYTES % (AUTO) 20.8 % (21-51); MEAN CORPUSCULAR HEMOGLOBIN 28.9 PG (27.0-31.0); MEAN CORPUSCULAR VOLUME 87.6 FL (78-98); MEAN PLATELET VOLUME 6.9 FL (7.4-10.4); MONOCYTES # (AUTO) 0.5 X10'3 (0-0.9); MONOCYTES % (AUTO) 8.9 % (2-12); NEUTROPHILS # (AUTO) 3.6 X10'3 (1.8-7.7); NEUTROPHILS % (AUTO) 64.8 % (42-75); PLATELET COUNT 202 X10'3 (140-440); RED BLOOD COUNT 3.53 X10'6 (4.70-6.10); RED CELL DISTRIBUTION WIDTH 14.6 % (11.5-14.5); WHITE BLOOD COUNT 5.6 X10'3 (4.5-11.0)
[2023-05-21 09:29] LABS: PROTHROMBIN TIME 45.1 SECONDS (9.0-12.0)
[2023-05-21 09:42] LABS: ALANINE AMINOTRANSFERASE 12 U/L (12-78); ALBUMIN 2.5 G/DL (3.4-5.0); ALBUMIN/GLOBULIN RATIO 0.6 (1.1-1.5); ALKALINE PHOSPHATASE 142 IU/L (46-116); ANION GAP 6 (8-16); ASPARTATE AMINO TRANSFERASE 18 U/L (10-37); BILIRUBIN,TOTAL 0.9 MG/DL (0.1-1.0); BLOOD UREA NITROGEN 12 MG/DL (7-18); BUN/CREATININE RATIO 13.6 (10.0-20.0); CALCIUM 8.6 MG/DL (8.5-10.1); CHLORIDE 105 MMOL/L (99-107); CREATININE 0.88 MG/DL (0.60-1.10); GLUCOSE 112 MG/DL (70-104); POTASSIUM 3.4 MMOL/L (3.5-5.1); SODIUM 137 MMOL/L (135-145); TOTAL PROTEIN 6.9 G/DL (6.4-8.2); eCRCL 56 ML/MIN; eGFR 82 ML/MIN
[2023-05-21 09:51] LABS: INR 4.6 INR
[2023-05-21] MEDS ORDERED: SPIR25TA PO (10:50)
[2023-05-21] MEDS ORDERED: LISI2.5T14 PO (10:50)
[2023-05-21] MEDS ORDERED: CEFD300C3 PO (10:50)
[2023-05-21 11:15] VITALS: BP 109/58; PULSE 60; RESP 14; TEMP 98; O2SAT 99
== END 2023-05-21 12:42 | disposition home health service (06) | DRG 559 ==
LOC: ER 22:10 → ED HOLD 05-16 00:04 → PCU 3S 05-16 02:05
PROVIDERS: ADMIT Internal Medicine; ATTEND Internal Medicine
PROC: 0S9C3ZZ Drainage of Right Knee Joint, Percutaneous Approach (ICD-10-PCS; principal; 2023-05-17)
PROC: CP1C1ZZ Planar Nuclear Medicine Imaging of Right Lower Extremity using Technetium 99m (Tc-99m) (ICD-10-PCS; 2023-05-20)
DX: T84.53XA Infection and inflammatory reaction due to internal right knee prosthesis, initial encounter (principal); A41.51 Sepsis due to Escherichia coli [E. coli]; G93.41 Metabolic encephalopathy; N17.0 Acute kidney failure with tubular necrosis; I50.23 Acute on chronic systolic (congestive) heart failure; Z66 Do not resuscitate; E78.5 Hyperlipidemia, unspecified; I48.0 Paroxysmal atrial fibrillation; Z96.653 Presence of artificial knee joint, bilateral; I49.5 Sick sinus syndrome; Z20.822 Contact with and (suspected) exposure to COVID-19; I11.0 Hypertensive heart disease with heart failure; M19.90 Unspecified osteoarthritis, unspecified site; Y83.1 Surgical operation with implant of artificial internal device as the cause of abnormal reaction of the patient, or of later complication, without mention of misadventure at the time of the procedure; I08.1 Rheumatic disorders of both mitral and tricuspid valves; Z87.891 Personal history of nicotine dependence; Z95.2 Presence of prosthetic heart valve; Z95.0 Presence of cardiac pacemaker; Z79.899 Other long term (current) drug therapy; Z79.02 Long term (current) use of antithrombotics/antiplatelets; Z79.01 Long term (current) use of anticoagulants; Y92.89 Other specified places as the place of occurrence of the external cause
CPT/HCPCS: 36415; 71045; 78315; 80048; 80053; 80061; 81001; 83036; 83605; 83735; 83880; 84145; 84484; 85025; 85610; 87040; 87070; 87077; 87081; 87186; 87502; 87503; 87811; 89051; 92508; 92616; 93005; 93306; 97116; 97161; 97530; 99285; A4314; A4349; A9503; C1758; J0690; J0696; J3370; J7030; J7040; J7050

== ENCOUNTER 2024-02-16 02:06 | Inpatient (IN) | payer MEDICARE, BC ==
[~2024-02-16] VITALS: Ht 188 cm; Wt 81.8 kg
[2024-02-16] VITALS (7 sets, daily range): BP systolic 110–118; BP diastolic 49–60; PULSE 56–65; RESP 12–16; TEMP 97.4–97.7; O2SAT 97–99
[~2024-02-16 02:06] MED LIST changes: +AZIT500T9 PO; +BRIM10DR3 EACHEYE; -BRIM5DRO3 EACHEYE; +DICL100G59; +FERR142T13 PO; +FURO40TA4 PO; +LISI2.5T14 PO; +PANT40TA54 PO; +SPIR25TA PO; +TRAV2.5D6 EACHEYE; -WARF3TAB56 PO
[2024-02-16 02:46] LABS: HEMATOCRIT 27.3 % (42.0-52.0); HEMOGLOBIN 9.1 g/dl (14.0-17.9); LYMPHOCYTES # (AUTO) 0.3 X10'3 (1.1-4.8); MEAN CORPUSCULAR HGB CONC 33.4 g/dL (33.0-36.5); MONOCYTES # (AUTO) 0.3 X10'3 (0-0.9)
[2024-02-16 02:48] LABS: BASOPHILS % (AUTO) 0.6 % (0-1); EOSINOPHILS % (AUTO) 0.1 % (0-6); LYMPHOCYTES % (AUTO) 5.2 % (21-51); MEAN CORPUSCULAR HEMOGLOBIN 31.1 PG (27.0-31.0); MEAN PLATELET VOLUME 7.3 FL (7.4-10.4); MONOCYTES % (AUTO) 4.7 % (2-12); NEUTROPHILS # (AUTO) 5.4 X10'3 (1.8-7.7); NEUTROPHILS % (AUTO) 89.4 % (42-75); PLATELET COUNT 99 X10'3 (140-440); RED BLOOD COUNT 2.93 X10'6 (4.70-6.10); RED CELL DISTRIBUTION WIDTH 15.1 % (11.5-14.5)
[2024-02-16 02:51] LABS: ALBUMIN 3.1 G/DL (3.4-5.0); ANION GAP 7 (8-16); BLOOD UREA NITROGEN 33 MG/DL (7-18); BUN/CREATININE RATIO 24.4 (10.0-20.0); CALCIUM 8.6 MG/DL (8.5-10.1); CHLORIDE 108 MMOL/L (99-107); CREATININE 1.35 MG/DL (0.60-1.10); GLUCOSE 107 MG/DL (70-104); POTASSIUM 3.9 MMOL/L (3.5-5.1); SODIUM 143 MMOL/L (135-145); TOTAL CARBON DIOXIDE 28.4 MMOL/L (24-32); eCRCL 43 ML/MIN; eGFR 50 ML/MIN
[2024-02-16] MEDS: acetaminophen 1,000mg/100ml IV 100 ML IV ONE (04:59)
[2024-02-16 05:19] LABS: BILIRUBIN,URINE NEGATIVE (Neg); CLARITY,URINE SLIGHTLY CLOUDY (Clear); COLOR,URINE YELLOW (Yellow); GLUCOSE, URINE NEGATIVE (Neg); KETONES,URINE NEGATIVE (Neg); LEUKOCYTE ESTERASE ,URINE TRACE (Neg); NITRITES, URINE NEGATIVE (Neg); OCCULT BLOOD,URINE TRACE-INTACT (Neg); PROTEIN,URINE 100 mg/dl (Neg); UROBILINOGEN,URINE 0.2 E.U/dL (0.2-1.0)
[2024-02-16 05:31] LABS: UA COLLECTION TYPE CLN CATCH MIDSTREAM
[2024-02-16 05:32] LABS: MUCUS STRANDS FEW /LPF (Neg); SQUAMOUS EPITHELIAL CELL,UR MODERATE /LPF (FEW)
[2024-02-16 05:35] LABS: RBC,URINE 0-2 /HPF (0-2); WBC,URINE 0-4 /HPF (0-4)
[2024-02-16 05:36] LABS: AMORPHOUS URATES 1+; BACTERIA,URINE 1+ /HPF (Neg); RENAL CELLS, URINE FEW /HPF
[2024-02-16] MEDS: CefTRIAXone/D5W-Rocephin 1gm 50 ML IV ONE (05:36)
[2024-02-16] MEDS ORDERED: HYDROcodone/acetaminophen 5mg/325mg tablet PO PRN (05:55)
[2024-02-16] MEDS ORDERED: magnesium sulf-water 4G/100mL 100 ML IV PRN (05:55)
[2024-02-16] MEDS ORDERED: potassium Cl 20 mEq SR tablet PO PRN ×2 (05:55)
[2024-02-16] MEDS ORDERED: magnesium Cl slow-release 64mg tablet PO PRN (05:55)
[2024-02-16] MEDS ORDERED: acetaminophen 325mg tablet PO PRN ×2 (05:55)
[2024-02-16] MEDS ORDERED: ondansetron/PF 4mg/2ml inj IV PRN (05:55)
[2024-02-16] MEDS ORDERED: mag hydrox/Alum hydrox/simeth 30ml oral suspension PO PRN (05:55)
[2024-02-16] MEDS ORDERED: magnesium sulf-water 2g/50mL 50 ML IV PRN (05:55)
[2024-02-16] MEDS ORDERED: potassium Cl 40MEQ/1/2NS 520ml 520 ML IV PRN (05:55)
[2024-02-16] MEDS: normal saline 1000ml 1,000 ML IV SCH ×3 (06:14→21:04)
[2024-02-16 06:18] LABS: C-REACTIVE PROTEIN 0.95 MG/DL (0.0-0.5); MAGNESIUM 1.7 MG/DL (1.5-2.4)
[2024-02-16 06:46] LABS: APTT 34 SECONDS (22-32); INR 3.1 INR
[2024-02-16] MEDS ORDERED: CefTRIAXone/D5W-Rocephin 1gm 50 ML IV SCH (08:00)
[2024-02-16] MEDS: K and/or MAG REPLACEMENT MC SCH (08:00)
[2024-02-16] MEDS ORDERED: POTA20PA31 PO (09:35)
[2024-02-16] MEDS: azithromycin/NS 500mg/250ml 250 ML IV SCH (11:35)
[2024-02-16] MEDS: piperacillin/tazo 3.375gm/50ml 50 ML IV SCH (15:54)
[2024-02-16] MEDS: normal saline 1000ml 1,000 ML IV ONE (16:15)
[2024-02-16] MEDS: lactose-reduced food (Ensure Enlive) - 237ml bottle PO SCH (18:00)
[2024-02-17] MEDS ORDERED: CefTRIAXone/D5W-Rocephin 1gm 50 ML IV SCH (05:00)
[2024-02-17 05:54] LABS: BASOPHILS % (AUTO) 0.3 % (0-1); EOSINOPHILS % (AUTO) 0.1 % (0-6); LYMPHOCYTES # (AUTO) 0.9 X10'3 (1.1-4.8); MEAN CORPUSCULAR HEMOGLOBIN 31.5 PG (27.0-31.0); MEAN CORPUSCULAR HGB CONC 33.5 g/dL (33.0-36.5); MEAN CORPUSCULAR VOLUME 94.2 FL (78-98); MEAN PLATELET VOLUME 7.5 FL (7.4-10.4); MONOCYTES # (AUTO) 0.3 X10'3 (0-0.9); MONOCYTES % (AUTO) 4.6 % (2-12); NEUTROPHILS # (AUTO) 5.2 X10'3 (1.8-7.7); PLATELET COUNT 76 X10'3 (140-440); RED BLOOD COUNT 2.87 X10'6 (4.70-6.10); RED CELL DISTRIBUTION WIDTH 15.9 % (11.5-14.5); WHITE BLOOD COUNT 6.5 X10'3 (4.5-11.0)
[2024-02-17 06:00] VITALS: BP 108/54; PULSE 66; RESP 12; TEMP 98.3; O2SAT 96
[2024-02-17 06:11] LABS: ALANINE AMINOTRANSFERASE 11 U/L (12-78); ALBUMIN 2.5 G/DL (3.4-5.0); ALBUMIN/GLOBULIN RATIO 0.6 (1.1-1.5); ALKALINE PHOSPHATASE 102 IU/L (46-116); ANION GAP 6 (8-16); ASPARTATE AMINO TRANSFERASE 24 U/L (10-37); BILIRUBIN,TOTAL 1.1 MG/DL (0.1-1.0); BLOOD UREA NITROGEN 29 MG/DL (7-18); CALCIUM 8.4 MG/DL (8.5-10.1); CHLORIDE 110 MMOL/L (99-107); CREATININE 1.16 MG/DL (0.60-1.10); GLUCOSE 102 MG/DL (70-104); MAGNESIUM 1.7 MG/DL (1.5-2.4); PHOSPHORUS 2.7 MG/DL (2.3-4.5); POTASSIUM 3.8 MMOL/L (3.5-5.1); SODIUM 143 MMOL/L (135-145); TOTAL CARBON DIOXIDE 26.9 MMOL/L (24-32); TOTAL PROTEIN 6.7 G/DL (6.4-8.2); eCRCL 50 ML/MIN; eGFR 59 ML/MIN
[2024-02-17 10:13] VITALS: BP 138/71; PULSE 69; RESP 14; TEMP 98.1; O2SAT 97
[2024-02-17 18:00] VITALS: BP 139/67; PULSE 65; RESP 20; TEMP 98.8; O2SAT 98
[2024-02-17 20:05] VITALS: RESP 20; O2SAT 98
[2024-02-17 21:57] VITALS: O2SAT 98
[2024-02-17 22:03] VITALS: BP 128/52; PULSE 71; RESP 16; TEMP 98.4; O2SAT 98
[2024-02-18 06:00] VITALS: BP 129/74; PULSE 78; RESP 16; TEMP 97.3; O2SAT 97
[2024-02-18 06:19] LABS: BASOPHILS % (AUTO) 0.1 % (0-1); EOSINOPHILS % (AUTO) 0 % (0-6); HEMATOCRIT 26.6 % (42.0-52.0); HEMOGLOBIN 8.8 g/dl (14.0-17.9); LYMPHOCYTES % (AUTO) 12.6 % (21-51); MEAN CORPUSCULAR HEMOGLOBIN 31.1 PG (27.0-31.0); MEAN CORPUSCULAR HGB CONC 33.1 g/dL (33.0-36.5); MEAN CORPUSCULAR VOLUME 94.1 FL (78-98); MEAN PLATELET VOLUME 7.2 FL (7.4-10.4); MONOCYTES # (AUTO) 0.4 X10'3 (0-0.9); MONOCYTES % (AUTO) 5.5 % (2-12); NEUTROPHILS # (AUTO) 6.4 X10'3 (1.8-7.7); NEUTROPHILS % (AUTO) 81.8 % (42-75); PLATELET COUNT 83 X10'3 (140-440); RED BLOOD COUNT 2.82 X10'6 (4.70-6.10); RED CELL DISTRIBUTION WIDTH 15.8 % (11.5-14.5); WHITE BLOOD COUNT 7.8 X10'3 (4.5-11.0)
[2024-02-18 06:37] LABS: GLUCOSE 113 MG/DL (70-104)
[2024-02-18 06:38] LABS: ALANINE AMINOTRANSFERASE 13 U/L (12-78); ALBUMIN 2.6 G/DL (3.4-5.0); ALBUMIN/GLOBULIN RATIO 0.6 (1.1-1.5); ALKALINE PHOSPHATASE 104 IU/L (46-116); ANION GAP 6 (8-16); ASPARTATE AMINO TRANSFERASE 17 U/L (10-37); BILIRUBIN,TOTAL 1.3 MG/DL (0.1-1.0); BLOOD UREA NITROGEN 28 MG/DL (7-18); BUN/CREATININE RATIO 29.5 (10.0-20.0); CALCIUM 8.5 MG/DL (8.5-10.1); CHLORIDE 112 MMOL/L (99-107); CREATININE 0.95 MG/DL (0.60-1.10); MAGNESIUM 1.6 MG/DL (1.5-2.4); POTASSIUM 4.1 MMOL/L (3.5-5.1); SODIUM 144 MMOL/L (135-145); TOTAL CARBON DIOXIDE 25.8 MMOL/L (24-32); TOTAL PROTEIN 6.8 G/DL (6.4-8.2); eCRCL 61 ML/MIN; eGFR 75 ML/MIN
[2024-02-18 08:22] LABS: HEMATOCRIT 26.1 % (42.0-52.0); HEMOGLOBIN 8.5 g/dl (14.0-17.9); MEAN CORPUSCULAR HEMOGLOBIN 30.8 PG (27.0-31.0); MEAN CORPUSCULAR HGB CONC 32.6 g/dL (33.0-36.5); MEAN CORPUSCULAR VOLUME 94.5 FL (78-98); MEAN PLATELET VOLUME 7.7 FL (7.4-10.4); PLATELET COUNT 82 X10'3 (140-440); RED BLOOD COUNT 2.76 X10'6 (4.70-6.10); RED CELL DISTRIBUTION WIDTH 15.6 % (11.5-14.5); WHITE BLOOD COUNT 7.1 X10'3 (4.5-11.0)
[2024-02-18] MEDS: pantoprazole 40 MG vial IV SCH (08:35)
[2024-02-18 10:00] VITALS: BP 135/75; PULSE 75; RESP 16; TEMP 98; O2SAT 97
[2024-02-18] MEDS: phytonadione inj. 10 MG in normal saline 100ml IV soln 100 ML IV ONE (10:10)
[2024-02-18 10:19] LABS: HEMATOCRIT 24.1 % (42.0-52.0); HEMOGLOBIN 7.9 g/dl (14.0-17.9); MEAN CORPUSCULAR HEMOGLOBIN 30.8 PG (27.0-31.0); MEAN CORPUSCULAR HGB CONC 32.6 g/dL (33.0-36.5); MEAN CORPUSCULAR VOLUME 94.4 FL (78-98); MEAN PLATELET VOLUME 7.5 FL (7.4-10.4); PLATELET COUNT 78 X10'3 (140-440); RED BLOOD COUNT 2.56 X10'6 (4.70-6.10); RED CELL DISTRIBUTION WIDTH 15.8 % (11.5-14.5); WHITE BLOOD COUNT 6.2 X10'3 (4.5-11.0)
[2024-02-18 10:42] LABS: D-DIMER 2.92 MG/L FEU (0-0.50); PROTHROMBIN TIME 19.6 SECONDS (9.0-12.0)
[2024-02-18 11:27] LABS: FIBRINOGEN 379 MG/DL (177-424)
[2024-02-18 14:12] LABS: HEMATOCRIT 24.1 % (42.0-52.0); HEMOGLOBIN 7.8 g/dl (14.0-17.9); MEAN CORPUSCULAR HEMOGLOBIN 31.1 PG (27.0-31.0); MEAN CORPUSCULAR HGB CONC 32.5 g/dL (33.0-36.5); MEAN CORPUSCULAR VOLUME 95.5 FL (78-98); MEAN PLATELET VOLUME 7.2 FL (7.4-10.4); PLATELET COUNT 81 X10'3 (140-440); RED BLOOD COUNT 2.52 X10'6 (4.70-6.10); RED CELL DISTRIBUTION WIDTH 15.8 % (11.5-14.5); WHITE BLOOD COUNT 6.2 X10'3 (4.5-11.0)
[2024-02-18 16:51] VITALS: TEMP 98
[2024-02-18 18:00] VITALS: BP 133/85; PULSE 85; RESP 20; TEMP 98.8; O2SAT 97
[2024-02-18 19:43] LABS: HEMOGLOBIN 8.1 g/dl (14.0-17.9); MEAN CORPUSCULAR HEMOGLOBIN 30.7 PG (27.0-31.0); MEAN CORPUSCULAR HGB CONC 32.5 g/dL (33.0-36.5); MEAN CORPUSCULAR VOLUME 94.4 FL (78-98); MEAN PLATELET VOLUME 7.3 FL (7.4-10.4); PLATELET COUNT 86 X10'3 (140-440); RED BLOOD COUNT 2.65 X10'6 (4.70-6.10); RED CELL DISTRIBUTION WIDTH 15.8 % (11.5-14.5); WHITE BLOOD COUNT 5.9 X10'3 (4.5-11.0)
[2024-02-18] MEDS: BRIMONIDINE TARTRATE 0.1% EACHEYE SCH (20:00)
[2024-02-18] MEDS: metoprolol tartrate 50mg tablet PO SCH (20:00)
[2024-02-18 20:05] VITALS: RESP 20; O2SAT 97
[2024-02-18 22:00] VITALS: BP 121/59; PULSE 73; RESP 18; TEMP 96.8; O2SAT 97
[2024-02-18 23:27] LABS: HEMATOCRIT 22.8 % (42.0-52.0); HEMOGLOBIN 7.6 g/dl (14.0-17.9); MEAN CORPUSCULAR HEMOGLOBIN 30.9 PG (27.0-31.0); MEAN CORPUSCULAR HGB CONC 33.2 g/dL (33.0-36.5); MEAN CORPUSCULAR VOLUME 93.1 FL (78-98); MEAN PLATELET VOLUME 7.2 FL (7.4-10.4); PLATELET COUNT 79 X10'3 (140-440); RED BLOOD COUNT 2.45 X10'6 (4.70-6.10); RED CELL DISTRIBUTION WIDTH 15.5 % (11.5-14.5); WHITE BLOOD COUNT 4.9 X10'3 (4.5-11.0)
[2024-02-19 06:11] LABS: BASOPHILS % (AUTO) 0.6 % (0-1); EOSINOPHILS # (AUTO) 0.1 X10'3 (0-0.9); EOSINOPHILS % (AUTO) 1.6 % (0-6); HEMATOCRIT 23.4 % (42.0-52.0); HEMOGLOBIN 7.6 g/dl (14.0-17.9); LYMPHOCYTES # (AUTO) 1.2 X10'3 (1.1-4.8); LYMPHOCYTES % (AUTO) 26.5 % (21-51); MEAN CORPUSCULAR HEMOGLOBIN 30.7 PG (27.0-31.0); MEAN CORPUSCULAR HGB CONC 32.6 g/dL (33.0-36.5); MEAN CORPUSCULAR VOLUME 94.4 FL (78-98); MEAN PLATELET VOLUME 8.2 FL (7.4-10.4); MONOCYTES # (AUTO) 0.3 X10'3 (0-0.9); MONOCYTES % (AUTO) 7.6 % (2-12); NEUTROPHILS # (AUTO) 2.9 X10'3 (1.8-7.7); NEUTROPHILS % (AUTO) 63.7 % (42-75); PLATELET COUNT 95 X10'3 (140-440); RED BLOOD COUNT 2.48 X10'6 (4.70-6.10); RED CELL DISTRIBUTION WIDTH 15.8 % (11.5-14.5); WHITE BLOOD COUNT 4.5 X10'3 (4.5-11.0)
[2024-02-19 06:29] LABS: ALANINE AMINOTRANSFERASE 11 U/L (12-78); ALBUMIN 2.4 G/DL (3.4-5.0); ALBUMIN/GLOBULIN RATIO 0.6 (1.1-1.5); ALKALINE PHOSPHATASE 114 IU/L (46-116); ANION GAP 4 (8-16); ASPARTATE AMINO TRANSFERASE 29 U/L (10-37); BILIRUBIN,TOTAL 1.1 MG/DL (0.1-1.0); BLOOD UREA NITROGEN 24 MG/DL (7-18); BUN/CREATININE RATIO 33.3 (10.0-20.0); CALCIUM 8.8 MG/DL (8.5-10.1); CHLORIDE 114 MMOL/L (99-107); CREATININE 0.72 MG/DL (0.60-1.10); GLUCOSE 97 MG/DL (70-104); MAGNESIUM 1.8 MG/DL (1.5-2.4); PHOSPHORUS 2.7 MG/DL (2.3-4.5); SODIUM 145 MMOL/L (135-145); TOTAL CARBON DIOXIDE 27.3 MMOL/L (24-32); TOTAL PROTEIN 6.4 G/DL (6.4-8.2); eCRCL 80 ML/MIN; eGFR > 90 ML/MIN
[2024-02-19 06:30] LABS: POTASSIUM 4.3 MMOL/L (3.5-5.1)
[2024-02-19] MEDS ORDERED: ROSUVASTATIN CALCIUM 5 MG TABLET PO SCH (08:00)
== END 2024-02-19 15:35 | disposition hospice, home (50) | DRG 871 ==
LOC: ER 02:06 → UNDOADMOB 06:00 → ED HOLD 06:00 → OBSVTOIN 09:37 → ORTHO 4S 10:47
PROVIDERS: ADMIT Student in an Organized Health Care Education/Training Program; ATTEND Family Medicine
PROC: 05HB33Z Insertion of Infusion Device into Right Basilic Vein, Percutaneous Approach (ICD-10-PCS; principal; 2024-02-17)
DX: A41.51 Sepsis due to Escherichia coli [E. coli] (principal); E43 Unspecified severe protein-calorie malnutrition; J18.9 Pneumonia, unspecified organism; J96.01 Acute respiratory failure with hypoxia; N17.0 Acute kidney failure with tubular necrosis; N39.0 Urinary tract infection, site not specified; I50.22 Chronic systolic (congestive) heart failure; R65.20 Severe sepsis without septic shock; I11.0 Hypertensive heart disease with heart failure; Z20.822 Contact with and (suspected) exposure to COVID-19; I05.0 Rheumatic mitral stenosis; E83.51 Hypocalcemia; E88.09 Other disorders of plasma-protein metabolism, not elsewhere classified; R62.7 Adult failure to thrive; G89.29 Other chronic pain; I49.5 Sick sinus syndrome; I48.0 Paroxysmal atrial fibrillation; Z66 Do not resuscitate; M54.9 Dorsalgia, unspecified; Z95.5 Presence of coronary angioplasty implant and graft; Z95.0 Presence of cardiac pacemaker; Z79.01 Long term (current) use of anticoagulants; Z79.899 Other long term (current) drug therapy; Z51.5 Encounter for palliative care; Z68.23 Body mass index [BMI] 23.0-23.9, adult
CPT/HCPCS: 36410; 36415; 71045; 76937; 80048; 80053; 81001; 83605; 83735; 83880; 84100; 84132; 84145; 85025; 85027; 85379; 85384; 85610; 85730; 86140; 86885; 86900; 86901; 87077; 87081; 87088; 87186; 87502; 87503; 87811; 92508; 92616; 93005; 93306; 97161; 97530; 99285; C1751; G0378; J0131; J0456; J0696; J2470; J2543; J7030